=== PATIENT | female | born 1975 | race Caucasian/White ===

== ENCOUNTER 2017-04-01 20:43 | Emergency (ER) | payer BC ==
[2017-04-01 21:02] VITALS: BP 145/105
[2017-04-01] MEDS ORDERED: methylPREDNISolone Sodium Succinate 125 MG/2 ML SDV IM ONE (21:11)
[2017-04-01] MEDS ORDERED: diphenhydrAMINE 50 MG/ML SDV IM ONE (21:11)
[2017-04-01] MEDS ORDERED: Famotidine 20 MG Tab PO ONE (21:13)
--- NOTE | 2017-04-01 21:24 | EDM.PDOC ---
ED HPI GENERAL MEDICAL PROBLEM - General Chief Complaint: Skin Complaint Stated Complaint: RASH FROM NECK TO FEET Time Seen by Provider: 04/01/17 21:14 Source of Information: Reports: Patient History Limitations: Reports: No Limitations - History of Present Illness INITIAL COMMENTS - FREE TEXT/NARRATIVE: 42-year-old female presents for evaluation and treatment of hives. Patient reports that the hives first started as pruritus to the bilateral palms. She reports around 5 PM she took 100 mg of Benadryl. She states her rash has increased from itchy palms to involve everything from her neck down. Reports erythematous hives to the trunk, bilateral hands and legs. No new detergents, perfumes or anything all she can think of. She denies any shortness of breath, difficulty breathing, swollen or scratchy throat. Patient reports that she was in the clinic today for sinus infection. Was put on Augmentin but states she has not started it yet as she has not had time to pick it up. Reports she's had hives in the past but never anything this severe. Normally takes allergra twice a day for allergies to her pets and seasonal allergies. Onset: Today Location: Reports: Neck, Chest, Abdomen, Back, Upper Extremity, Left, Upper Extremity, Right, Lower Extremity, Left, Lower Extremity, Right Treatments [employer] CHEF: Reports: Other Medication(s) (benadryl 100mg at 1700) - Related Data Allergies Allergy/AdvReac Type Severity Reaction Status Date / Time acetaminophen [From Percocet] Allergy Difficulty Verified 10/04/14 21:37 Breathing clarithromycin [From Biaxin] Allergy Rash Verified 10/04/14 21:37 oxycodone HCl [From Percocet] Allergy Difficulty Verified 10/04/14 21:37 Breathing Home Meds: Home Meds Albuterol [Ventolin HFA] 1 puff INH ASDIRECTED PRN 06/28/14 [History] Budesonide/Formoterol Fumarate [Symbicort 80-4.5 Mcg Inhaler] 1 puff INH QAM [History] diphenhydrAMINE [Benadryl] 100 mg PO ASDIRECTED PRN 06/28/14 [History] Acetaminophen [Non-Aspirin Extra Strength] 2 tab PO Q4H PRN 06/29/14 [History] Fexofenadine/Pseudoephedrine [Windy-D 12 Hour Tablet] 1 tab PO DAILY 06/29/14 [History] Ibuprofen 2 - 3 tab PO Q4H PRN 06/29/14 [History] Indomethacin [Indocin SR] 75 mg PO ASDIRECTED PRN 06/29/14 [History] Magnesium Oxide [Magnesium] 1,000 mg PO BID 06/29/14 [History] Amilodipine 5 mg PO DAILY 04/01/17 [History] Famotidine [Pepcid] 20 mg PO BID #20 tablet 04/01/17 [Rx] Hydrochlorothiazide 25 mg PO DAILY 04/01/17 [History] Prednisone [IJD: predniSONE] 40 mg PO WITHBREAKFAST #19 tab 04/01/17 [Rx] Past Medical History Cardiovascular History: Reports: Hypertension Respiratory History: Reports: Asthma, Pneumonia, Recurrent, Other (See Below) Other Respiratory History: seasonal allergies Neurological History: Reports: Migraines Dermatologic History: Reports: Other (See Below) Other Dermatologic History: rash - Past Surgical History HEENT Surgical History: Reports: Oral Surgery Female Surgical History: Reports: Hysterectomy Musculoskeletal Surgical History: Reports: Arthroscopic Knee Social & Family History - Tobacco Use Smoking Status *Q: Never Smoker Used Tobacco, but Quit: No Second Hand Smoke Exposure: No - Caffeine Use Caffeine Use: Reports: Soda - Alcohol Use Days Per Week of Alcohol Use: 2 Number of Drinks Per Day: 2 Total Drinks Per Week: 4 - Recreational Drug Use Recreational Drug Use: No ED ROS GENERAL - Review of Systems Review Of Systems: See Below HEENT: Denies: Throat Swelling Respiratory: Denies: Shortness of Breath Skin: Reports: Pruritis, Rash ED EXAM, SKIN/RASH Exam: See Below Exam Limited By: No Limitations General Appearance: Alert, WD/WN, No Apparent Distress Ears: Normal External Exam, Normal Canal, Hearing Grossly Normal, Normal TMs Nose: Normal Inspection Throat/Mouth: Normal Inspection, Normal Lips, Normal Voice, No Airway Compromise , Other (no swollen uvula; no mucus membrane involvement) Respiratory/Chest: No Respiratory Distress, Lungs Clear, Normal Breath Sounds Cardiovascular: Normal Peripheral Pulses, Regular Rate, Rhythm, No Murmur Neurological: Alert, Oriented, Normal Cognition Psychiatric: Normal Affect, Normal Mood Skin: Warm, Dry, Erythema Location, Skin: Neck, Chest, Abdomen, Back, Upper Extremity, Right, Upper Extremity, Left, Lower Extremity, Right, Lower Extremity, Left, Palms Characteristics: Macular, Erythematous Associated features: No: Warmth, Tenderness Course - Vital Signs Last Recorded V/S: Last Vital Signs Temp 36.6 C 04/01/17 21:01 Pulse 104 H 04/01/17 21:01 Resp 20 04/01/17 21:01 BP 145/105 H 04/01/17 21:01 Pulse Ox 98 04/01/17 21:01 - Orders/Labs/Meds Meds: Medications Discontinued Medications Generic Name Dose Route Start Last Admin Trade Name Ludwig PRN Reason Stop Dose Admin Diphenhydramine HCl 50 mg 04/01/17 21:11 04/01/17 21:20 Benadryl IM 04/01/17 21:12 50 mg ONETIME ONE Administration Famotidine 20 mg 04/01/17 21:13 04/01/17 21:20 Pepcid PO 04/01/17 21:14 20 mg ONETIME ONE Administration Methylprednisolone Sodium Succinate 125 mg 04/01/17 21:11 04/01/17 21:23 Solu-Medrol IM 04/01/17 21:12 125 mg ONETIME ONE Administration - Re-Assessments/Exams Free Text/Narrative Re-Assessment/Exam: 04/01/17 22:24 I have checked on the patient 3 times since receiving the medications around 2119. The rash is not quite as intense, still present. Pruritus has improved slightly. I will put her on some prednisone and have her do Windy twice daily. Pepcid twice a day. Follow up with her primary care provider or Saturday this week for recheck. She is to return to the ER immediately if her symptoms change or worsen in particularly if she experiences any shortness of breath, throat swelling or difficulty breathing. Departure - Departure Time of Disposition: 22:28 Disposition: Home, Self-Care 01 Condition: Fair Clinical Impression: Hives of unknown origin - Discharge Information Prescriptions: Famotidine [Pepcid] 20 mg PO BID #20 tablet Prednisone [IJD: predniSONE] 40 mg PO WITHBREAKFAST #19 tab Referrals: Cassius Cortés MD [Primary Care Provider] - Forms: ED Department Discharge Additional Instructions: Allergra or second generation antihistamin such as zytrec or claritin twice a day x 10 days. Pepcid 20mg PO bid x 10 days. Prednisone as prescribed. Start tomorrow. Follow-up with PCP or Saturday this week. Please return to the ER should your symptoms change or worsen.
== END 2017-04-01 22:35 | disposition home or self-care (01) ==
LOC: JD.ED 20:43
DX: L50.9 Urticaria, unspecified (principal); Z88.1 Allergy status to other antibiotic agents; Z88.5 Allergy status to narcotic agent; Z79.899 Other long term (current) drug therapy
CPT/HCPCS: 96372; 99283; A9270; J1200; J2930

== ENCOUNTER 2018-06-29 06:06 | Emergency (ER) | payer BC ==
[2018-06-29 06:21] VITALS: BP 123/78
--- NOTE | 2018-06-29 06:42 | EDM.PDOC ---
ED HPI GENERAL MEDICAL PROBLEM - General Chief Complaint: Respiratory Problem Stated Complaint: FEVER/BODY ACHES Time Seen by Provider: 06/29/18 06:23 Source of Information: Reports: Patient History Limitations: Reports: No Limitations - History of Present Illness INITIAL COMMENTS - FREE TEXT/NARRATIVE: This is a 43-year-old female. She states that yesterday she is worse feeling very tired and achy all over. She just didn't seem like she couldn't get warm. The week prior to this she just hasn't been feeling quite right but nothing real specific. Then around 6 PM when she went to bed she started having some chills and had a fever documented to 101. She complains of a lot of sinus drainage and maybe a mild sore throat and she is coughing up some yellow phlegm. She is continued to have some chills and just not feeling well and she comes to the ER this morning for evaluation. She denies any nausea or vomiting or diarrhea. Her temperature in the ER upon arrival was 98.0. She is a little bit diaphoretic because I believe her fever broke. 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 (see below) Other Treatments ACETYLENE CUTTER: Dayquil Generalized Pain Score (Numeric/FACES): 5 - Related Data Allergies Allergy/AdvReac Type Severity Reaction Status Date / Time acetaminophen [From Percocet] Allergy Difficulty Verified 06/29/18 06:21 Breathing clarithromycin [From Biaxin] Allergy Rash Verified 06/29/18 06:21 oxycodone HCl [From Percocet] Allergy Difficulty Verified 06/29/18 06:21 Breathing Home Meds: Home Meds Budesonide/Formoterol Fumarate [Symbicort 80-4.5 Mcg Inhaler] 1 puff INH QAM [History] diphenhydrAMINE [Benadryl] 100 mg PO ASDIRECTED PRN 06/28/14 [History] Ibuprofen 2 - 3 tab PO Q4H PRN 06/29/14 [History] hydroCHLOROthiazide [Hydrochlorothiazide] 25 mg PO DAILY 04/01/17 [History] Oseltamivir [Tamiflu] 75 mg PO BID #9 cap 06/29/18 [Rx] Past Medical History Cardiovascular History: Reports: Hypertension Respiratory History: Reports: Asthma, Pneumonia, Recurrent, Other (See Below) Other Respiratory History: seasonal allergies Neurological History: Reports: Migraines Psychiatric History: Reports: Anxiety, Depression Dermatologic History: Reports: Other (See Below) Other Dermatologic History: rash - Past Surgical History HEENT Surgical History: Reports: Oral Surgery Female Surgical History: Reports: Hysterectomy Musculoskeletal Surgical History: Reports: Arthroscopic Knee Social & Family History - Tobacco Use Smoking Status *Q: Never Smoker - Caffeine Use Caffeine Use: Reports: Soda - Recreational Drug Use Recreational Drug Use: No ED ROS GENERAL - Review of Systems Review Of Systems: See Below Constitutional: Reports: Fever, Chills, Malaise HEENT: Reports: Rhinitis, Sinus Problem. Denies: Ear Pain, Throat Pain Respiratory: Reports: Cough, Sputum. Denies: Shortness of Breath Cardiovascular: Reports: No Symptoms Endocrine: Reports: No Symptoms GI/Abdominal: Denies: Abdominal Pain, Diarrhea, Nausea, Vomiting : Reports: No Symptoms Musculoskeletal: Reports: Other (Achy all over) Skin: Reports: No Symptoms Neurological: Reports: No Symptoms Psychiatric: Reports: No Symptoms Hematologic/Lymphatic: Reports: No Symptoms ED EXAM, GENERAL - Physical Exam Exam: See Below Exam Limited By: No Limitations General Appearance: Alert, WD/WN, No Apparent Distress Eye Exam: Bilateral Eye: Normal Inspection Ears: Normal External Exam, Normal Canal, Normal TMs Nose: Normal Inspection, Clear Rhinorrhea Throat/Mouth: Normal Inspection, Normal Lips, Normal Voice, No Airway Compromise , Other (There is no inflammation of the oropharynx or any exudates in the tonsils are not particularly enlarged) Head: Normocephalic Neck: Supple Respiratory/Chest: No Respiratory Distress, Lungs Clear, Normal Breath Sounds Cardiovascular: Regular Rate, Rhythm, No Murmur GI/Abdominal: Soft, Non-Tender Back Exam: Normal Inspection, Full Range of Motion Extremities: Normal Inspection, Normal Range of Motion Neurological: Alert, Oriented Psychiatric: Normal Affect, Normal Mood Skin Exam: Warm, Diaphoretic Course - Vital Signs Last Recorded V/S: Last Vital Signs Temp 98.5 F 06/29/18 06:18 Pulse 107 H 06/29/18 06:18 Resp 16 06/29/18 06:18 BP 123/78 06/29/18 06:18 Pulse Ox 97 06/29/18 06:18 - Orders/Labs/Meds Orders: Active Orders 24 hr Category Date Time Status CULTURE STREP A CONFIRMATION [RM] Stat Lab 06/29/18 06:22 Results STREP SCRN A RAPID W CULT CONF [RM] Stat Lab 06/29/18 06:22 Results Oseltamivir [Tamiflu] Med 06/29/18 06:54 Once 75 mg PO ONETIME ONE - Re-Assessments/Exams Free Text/Narrative Re-Assessment/Exam: 06/29/18 06:54 I spoke to the patient her strep screen was negative, refer flu screen was positive for influenza a period will start her on some Tamiflu 75 mg twice a day. She is to go home and drink lots of fluids, rest and sleep, use Tylenol or ibuprofen as needed for the fever. She is not to return to work until she is fever free for 24 hours. Departure - Departure Time of Disposition: 06:55 Disposition: Home, Self-Care 01 Condition: Fair Clinical Impression: Influenza A - Discharge Information *PRESCRIPTION DRUG MONITORING PROGRAM REVIEWED*: Not Applicable *COPY OF PRESCRIPTION DRUG MONITORING REPORT IN PATIENT MICHELLE: Not Applicable Prescriptions: Oseltamivir [Tamiflu] 75 mg PO BID #9 cap Instructions: Influenza, Adult, [id number] Referrals: Cassius Cortés MD [Primary Care Provider] - Forms: ED Department Discharge Additional Instructions: Home, rest and sleep as much as possible, no strenuous activity, use a decongestant as needed for the nasal congestion, take the Tamiflu 75 mg twice a day for the next 5 days, drink lots of fluids and avoid sugar, use Tylenol or ibuprofen as needed for fever, do not return to work until your fever is gone for 24 hours, if your symptoms worsen return to the ER. - My Orders Last 24 Hours: My Active Orders 06/29/18 06:22 CULTURE STREP A CONFIRMATION [RM] Stat STREP SCRN A RAPID W CULT CONF [RM] Stat 06/29/18 06:54 Oseltamivir [Tamiflu] 75 mg PO ONETIME ONE - Assessment/Plan Last 24 Hours: My Active Orders 06/29/18 06:22 CULTURE STREP A CONFIRMATION [RM] Stat STREP SCRN A RAPID W CULT CONF [] Stat 06/29/18 06:54 Oseltamivir [Tamiflu] 75 mg PO ONETIME ONE
[2018-06-29] MEDS ORDERED: Oseltamivir 75 MG Cap PO ONE (06:54)
== END 2018-06-29 07:08 | disposition home or self-care (01) ==
LOC: JD.ED 06:06
DX: J10.1 Influenza due to other identified influenza virus with other respiratory manifestations (principal); I10 Essential (primary) hypertension; Z79.899 Other long term (current) drug therapy; Z90.710 Acquired absence of both cervix and uterus; Z88.1 Allergy status to other antibiotic agents; Z88.6 Allergy status to analgesic agent
CPT/HCPCS: 87081; 87430; 87804; 99283; A9270